=== PATIENT | male | born 2000 | race Caucasian/White ===

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

== ENCOUNTER 2020-09-24 11:40 | Emergency (ER) | payer SELFPAY ==
[2020-09-24] MEDS ORDERED: Sodium Chloride 0.9% 1,000 ML IV STA (12:04)
--- NOTE | 2020-09-24 13:05 | CR ---
Chest: 2 views of the chest were obtained. Comparison: No prior chest imaging is available. Heart size and mediastinum are within normal limits. Lungs are clear with no acute parenchymal change. Bony structures are within normal limits for the patient's age. Impression: 1. Nothing acute is seen on 2 view chest x-ray. Diagnostic code #1
--- NOTE | 2020-09-24 13:15 | EDM.PDOC ---
ED HPI GENERAL MEDICAL PROBLEM - General Chief Complaint: Syncope Stated Complaint: SYNCOPE/ HEAD INJURY Time Seen by Provider: 09/24/20 11:54 Source of Information: Reports: Patient, RN Notes Reviewed History Limitations: Reports: No Limitations - History of Present Illness INITIAL COMMENTS - FREE TEXT/NARRATIVE: Patient is a 19-year-old male presenting to the emergency department after having a syncopal episode at work. 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 He then had a syncopal episode causing him to fall and hit his head against a wall. Fall was witnessed. He regained consciousness very quickly thereafter. He complains of a severe headache at this time but denies any vision changes or vomiting since the incident. He does report that he has not felt real well for the last few days and did vomit this morning before the incident occurred. Denies any cardiac conditions. Aside from the headache, he has no other complaints at this time. Headache Pain Score (Numeric/FACES): 7 - Related Data Allergies Allergy/AdvReac Type Severity Reaction Status Date / Time No Known Allergies Allergy Verified 02/15/19 12:47 Home Meds: Home Meds . [No Known Home Meds] 08/07/17 [History] Past Medical History - Past Health History Medical/Surgical History: Denies Medical/Surgical History Respiratory History: Reports: Other (See Below) Endocrine/Metabolic History: Reports: Obesity/BMI 30+ Social & Family History - Family History Family Medical History: No Pertinent Family History - Tobacco Use Tobacco Use Status *Q: Current Every Day Tobacco User Years of Tobacco use: 4 Packs/Tins Daily: 0.1 - Caffeine Use Caffeine Use: Reports: Soda, Tea - Recreational Drug Use Recreational Drug Type: Reports: Marijuana/Hashish Recreational Drug Use Frequency: Rarely - Living Situation & Occupation Living situation: Reports: Single, Alone Occupation: Employed ([employer]) ED ROS GENERAL - Review of Systems Review Of Systems: See Below Constitutional: Reports: No Symptoms. Denies: Fever, Chills, Weakness HEENT: Reports: No Symptoms. Denies: Vision Change Respiratory: Reports: No Symptoms Cardiovascular: Reports: Syncope. Denies: Chest Pain Endocrine: Reports: No Symptoms GI/Abdominal: Reports: No Symptoms. Denies: Abdominal Pain, Diarrhea, Nausea, Vomiting : Reports: No Symptoms Musculoskeletal: Reports: No Symptoms. Denies: Neck Pain Skin: Reports: No Symptoms Neurological: Reports: Headache, Syncope. Denies: Confusion, Dizziness, Trouble Speaking, Difficulty Walking, Weakness, Change in Speech, Gait Disturbance Psychiatric: Reports: No Symptoms Hematologic/Lymphatic: Reports: No Symptoms Immunologic: Reports: No Symptoms - Physical Exam Exam: See Below Exam Limited By: No Limitations General Appearance: Alert, WD/WN, No Apparent Distress Eye Exam: Bilateral Eye: PERRL Head Exam: Atraumatic, Normocephalic Neck: Normal Inspection, Supple, Non-Tender, Full Range of Motion Respiratory/Chest: No Respiratory Distress, Lungs Clear, Normal Breath Sounds, No Accessory Muscle Use, Chest Non-Tender Cardiovascular: Normal Peripheral Pulses, Regular Rate, Rhythm, No Edema, No Gallop, No JVD, No Murmur, No Rub GI/Abdominal: Normal Bowel Sounds, Soft, Non-Tender, No Organomegaly, No Distention, No Abnormal Bruit, No Mass Neuro Exam (Abbreviated): Alert, Oriented, CN II-XII Intact, Normal Cognition, Normal Gait, Normal Reflexes, No Motor/Sensory Deficits Psychiatric: Normal Affect, Normal Mood Skin Exam: Warm, Dry, Intact, Normal Color, No Rash Course - Vital Signs Last Recorded V/S: Last Vital Signs Temp 97.8 F 09/24/20 11:55 Pulse 67 09/24/20 11:55 Resp 20 09/24/20 11:55 BP 134/80 09/24/20 11:55 Pulse Ox 96 09/24/20 11:55 Orthostatic Blood Pressure [ 113/61 Standing] Orthostatic Blood Pressure [ 118/60 Sitting] Orthostatic Blood Pressure [ 124/54 Supine] - Orders/Labs/Meds Orders: Active Orders 24 hr Category Date Time Status EKG Documentation Completion [RC] STAT Care 09/24/20 12:03 Active Orthostatic Vital Signs [RC] ASDIRECTED Care 09/24/20 12:04 Active Labs: Laboratory Tests 09/24/20 09/24/20 09/24/20 Range/Units 12:15 12:15 12:15 WBC 5.69 (4.23-9.07) K/mm3 RBC 5.46 (4.63-6.08) M/mm3 Hgb 14.9 (13.7-17.5) gm/dl Hct 44.9 (40.1-51.0) % MCV 82.2 (79.0-92.2) fl MCH 27.3 (25.7-32.2) pg MCHC 33.2 (32.2-35.5) g/dl RDW Std Deviation 39.3 (35.1-43.9) fL Plt Count 312 D (163-337) K/mm3 MPV 9.2 L (9.4-12.3) fl Neut % (Auto) 64.9 (34.0-67.9) % Lymph % (Auto) 23.7 (21.8-53.1) % [place] % (Auto) 10.0 (5.3-12.2) % Eos % (Auto) 0.7 L (0.8-7.0) Baso % (Auto) 0.7 (0.1-1.2) % Neut # (Auto) 3.69 (1.78-5.38) K/mm3 Lymph # (Auto) 1.35 (1.32-3.57) K/mm3 [place] # (Auto) 0.57 (0.30-0.82) K/mm3 Eos # (Auto) 0.04 (0.04-0.54) K/mm3 Baso # (Auto) 0.04 (0.01-0.08) K/mm3 Sodium 144 (136-145) mEq/L Potassium 4.0 (3.5-5.1) mEq/L Chloride 104 (98-107) mEq/L Carbon Dioxide 28 (21-32) mEq/L Anion Gap 16.0 H (5-15) BUN 12 (7-18) mg/dL Creatinine 0.9 (0.7-1.3) mg/dL Est Cr Clr Drug Dosing 127.72 mL/min Estimated GFR (MDRD) > 60 (>60) mL/min BUN/Creatinine Ratio 13.3 L (14-18) Glucose 88 (70-99) mg/dL Calcium 9.1 (8.5-10.1) mg/dL Magnesium 1.7 L (1.8-2.4) mg/dL Total Bilirubin 0.7 (0.2-1.0) mg/dL AST 20 (15-37) U/L ALT 27 (16-63) U/L Alkaline Phosphatase 66 (46-116) U/L Troponin I < 0.017 (0.00-0.056) ng/mL Total Protein 8.0 (6.4-8.2) g/dl Albumin 4.2 (3.4-5.0) g/dl Globulin 3.8 gm/dL Albumin/Globulin Ratio 1.1 (1-2) Meds: Medications Discontinued Medications Generic Name Dose Route Start Last Admin Trade Name Kelby PRN Reason Stop Dose Admin Acetaminophen 975 mg 09/24/20 13:16 09/24/20 13:48 Acetaminophen 325 Mg Tab PO 09/24/20 13:17 975 mg NOW ONE Administration Sodium Chloride 1,000 mls @ 999 mls/hr 09/24/20 12:04 09/24/20 12:30 Normal Saline IV 09/24/20 13:04 999 mls/hr NOW STA Administration - Re-Assessments/Exams Free Text/Narrative Re-Assessment/Exam: Patient is a 19-year-old male presenting to the emergency department for evaluation after experiencing a syncopal episode at work. 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 Reports hitting his head on the wall when he fell. Fall was witnessed and he regained consciousness very quickly. At this point, he is complaining of a fairly significant headache. He reports that he has felt a little nauseous for the last few days and did vomit this morning before the incident. He has not had any vomiting since. Exam is grossly unremarkable. I have ordered blood work, EKG, chest x-ray, head CT, and a 1 L bolus of normal saline. We will also give Tylenol 975 mg p.o. 09/24/20 13:56 Hematology is grossly unremarkable. EKG shows a sinus arrhythmia with no acute abnormalities. This is a normal age variant. Head CT is normal. Patient states he is feeling much better after the IV fluids and Tylenol. We will discharge him home with instructions to rest and increase fluid intake today. He may return back to work tomorrow if he is feeling well. Discussed return precautions. Discharge instructions as documented. Departure - Departure Time of Disposition: 13:57 Disposition: Home, Self-Care 01 Condition: Good Clinical Impression: Syncope Qualifiers: Syncope type: unspecified Qualified Code(s): R55 - Syncope and collapse - Discharge Information *PRESCRIPTION DRUG MONITORING PROGRAM REVIEWED*: No *COPY OF PRESCRIPTION DRUG MONITORING REPORT IN PATIENT VINICIUS: No Instructions: Syncope, [id number] Referrals: PCP,None [Primary Care Provider] - Forms: ED Department Discharge, ED Return to Work/School Form Additional Instructions: You were seen in the emergency department today for evaluation after having a syncopal episode at work. Work-up included blood work, EKG, chest x-ray, and head CT. Results of your work-up was found to be normal. While in the ER, you received a liter of IV fluids as well as Tylenol for your headache. Report this did make you feel much better. Recommend that you go home and rest today. Ensure that you are taking an adequate amount of fluid. If you are feeling well, you may return to work tomorrow. If you should experience any recurrence of symptoms or develop any new new symptoms of concern, please do not hesitate to return to the ER for reevaluation. Sepsis Event Note (ED) - Evaluation Sepsis Screening Result: No Definite Risk - Focused Exam Vital Signs: Vital Signs Temp Pulse Resp BP Pulse Ox 09/24/20 11:55 97.8 F 67 20 134/80 96 - My Orders Last 24 Hours: My Active Orders 09/24/20 12:03 EKG Documentation Completion [RC] STAT 09/24/20 12:04 Orthostatic Vital Signs [RC] ASDIRECTED - Assessment/Plan Last 24 Hours: My Active Orders 09/24/20 12:03 EKG Documentation Completion [RC] STAT 09/24/20 12:04 Orthostatic Vital Signs [RC] ASDIRECTED
[2020-09-24] MEDS ORDERED: Acetaminophen 325 MG Tab PO ONE (13:16)
--- NOTE | 2020-09-24 13:36 | CT ---
Head CT Technique: Multiple axial sections through the brain were obtained. Intravenous contrast was not utilized. Reconstructed coronal and sagittal images were obtained. Comparison: No prior intracranial imaging is available. Findings: Ventricles along with basal cisterns and sulci over the convexities are within normal limits for the patient's age. No abnormal parenchymal densities are seen. No evidence of intracranial hemorrhage. No midline shift or mass-effect is seen. Bone window settings were reviewed. Visualized paranasal sinuses and mastoid sinuses show nothing acute. No acute calvarial abnormality is appreciated. Impression: 1. Nothing acute is appreciated on noncontrast head CT exam. Diagnostic code #1
== END 2020-09-24 14:10 | disposition home or self-care (01) ==
LOC: JD.ED 11:40
DX: R55 Syncope and collapse (principal); E66.9 Obesity, unspecified; Z72.0 Tobacco use
CPT/HCPCS: 36415; 70450; 71046; 80053; 83735; 84484; 85025; 93005; 99284; A9270; J7030

== ENCOUNTER 2021-02-25 13:06 | Emergency (ER) | payer SELFPAY ==
[2021-02-25] MEDS ORDERED: Ketorolac 60 MG/2 ML SDV IM ONE (13:39)
--- NOTE | 2021-02-25 13:43 | EDM.PDOC ---
ED HPI GENERAL MEDICAL PROBLEM - General Chief Complaint: ENT Problem Stated Complaint: WEAK\BODY ACHE Time Seen by Provider: 02/25/21 13:21 Source of Information: Reports: Patient History Limitations: Reports: No Limitations - History of Present Illness INITIAL COMMENTS - FREE TEXT/NARRATIVE: 20-year-old male presents the emergency department today with complaints of left ear pain, fever, chills, body aches, cough and shortness of breath. Onset of symptoms was approximately 3 days ago. He states he still has gone to work the past couple of days however today he states his body feels so weak and achy that he can hardly get out of bed. Denies any nausea, vomiting or diarrhea. States his appetite has been normal. States he is otherwise healthy. Does admit to smoking cigarettes daily. Generalized Pain Score (Numeric/FACES): 4 - Related Data Allergies Allergy/AdvReac Type Severity Reaction Status Date / Time No Known Allergies Allergy Verified 02/25/21 13:28 Home Meds: Home Meds Amoxicillin 875 mg PO BID #10 tablet 02/25/21 [Rx] Past Medical History - Past Health History Medical/Surgical History: Denies Medical/Surgical History Respiratory History: Reports: Other (See Below) Endocrine/Metabolic History: Reports: Obesity/BMI 30+ Social & Family History - Family History Family Medical History: No Pertinent Family History - Tobacco Use Tobacco Use Status *Q: Current Every Day Tobacco User Years of Tobacco use: 7 Packs/Tins Daily: 0.2 - Caffeine Use Caffeine Use: Reports: None - Recreational Drug Use Recreational Drug Use: Yes Recreational Drug Type: Reports: Marijuana/Hashish Other Recreational Drug Type: quit two months ago - Living Situation & Occupation Living situation: Reports: Single, Alone Occupation: Employed ([employer]) ED ROS ENT - Review of Systems Review Of Systems: Comprehensive ROS is negative, except as noted in HPI. ED EXAM, ENT - Physical Exam Exam: See Below Exam Limited By: No Limitations General Appearance: Alert, WD/WN, Mild Distress Ears: Normal External Exam, Hearing Grossly Normal (Blood noted to bilateral canals after having ears cleaned), TM Bulging (Left ear), TM Dullness, TM Erythema (Left ear), TM Obscured by Cerumen (Bilateral ears prior to ear wash). No: Normal Canal Nose: Normal Inspection Mouth/Throat: Normal Inspection, Normal Gums, Normal Lips, Normal Oropharynx Head: Atraumatic, Normocephalic Neck: Normal Inspection, Supple Respiratory/Chest: No Respiratory Distress, Lungs Clear, Normal Breath Sounds, No Accessory Muscle Use, Chest Non-Tender Cardiovascular: Normal Peripheral Pulses, Regular Rate, Rhythm, No Edema, No Murmur GI/Abdominal: Normal Bowel Sounds, Soft, Non-Tender, No Distention (Male) Exam: Deferred Rectal (Males) Exam: Deferred Back: Normal Inspection, Full Range of Motion Extremities: Normal Inspection, Normal Range of Motion, Non-Tender, No Pedal Edema, Normal Capillary Refill Neurological: Alert, Oriented, Normal Cognition Psychiatric: Normal Affect, Normal Mood Skin: Warm, Dry, Intact, Normal Color, No Rash Lymphatic: No Adenopathy Course - Vital Signs Text/Narrative:: Upon physical exam, I am unable to visualize patient's tympanic membranes due to his ears being occluded with wax. States that left ear is extremely sore and he has increased pain with yawning or coughing. Remainder of physical exam is unremarkable. Patient is hemodynamically stable. Will medicate the patient with Toradol 60 mg IM and then have nursing staff clean the patient's ears. We will also obtain a Covid swab. Last Recorded V/S: Last Vital Signs Temp 97.6 F 02/25/21 13:24 Pulse 104 H 02/25/21 13:24 Resp 18 02/25/21 13:24 BP 124/85 02/25/21 13:24 Pulse Ox 99 02/25/21 13:24 - Orders/Labs/Meds Orders: Active Orders 24 hr Category Date Time Status Ear Irrigation [RC] ASDIRECTED Care 02/25/21 13:40 Active Labs: Laboratory Tests 02/25/21 Range/Units 13:32 Influenza Type A RNA Negative (NEGATIVE) Influenza Type B RNA Negative (NEGATIVE) SARS-CoV-2 RNA ([facility]OS) Negative (NEGATIVE) Meds: Medications Discontinued Medications Generic Name Dose Route Start Last Admin Trade Name Freq PRN Reason Stop Dose Admin Ketorolac Tromethamine 60 mg 02/25/21 13:39 02/25/21 13:55 Ketorolac 60 Mg/2 Ml Sdv IM 02/25/21 13:40 60 mg ONETIME ONE Administration - Re-Assessments/Exams Free Text/Narrative Re-Assessment/Exam: 02/25/21 14:40 Patient's Covid influenza a and B swabs are all negative. States he does have pain relief from the Toradol. Will evaluate his ears once nursing staff has cleaned them. 02/25/21 15:20 After nursing staff had clean the patient's ears there was some blood noted to the patient's bilateral canals. Tympanic membrane in the right ear is unremarkable. Tympanic membrane to left ear is dull, erythematous and edematous. Patient will be discharged home with a prescription for amoxicillin. Departure - Departure Time of Disposition: 15:22 Disposition: Home, Self-Care 01 Condition: Good Clinical Impression: Otitis media Qualifiers: Otitis media type: unspecified Chronicity: acute Qualified Code(s): H66.90 - Otitis media, unspecified, unspecified ear - Discharge Information Prescriptions: Amoxicillin 875 mg PO BID #10 tablet Instructions: Otitis Media, Adult, [id number] Referrals: PCP,None [Primary Care Provider] - Forms: ED Department Discharge, ED Return to Work/School Form Additional Instructions: You were seen in the emergency department today with complaints of left ear pain and body aches. Covid and influenza testing was completed and this was negative. Your ears were compacted with wax and nursing staff did clean your ears on the emergency department. There is some blood noted to both your ear canals due to irritation however this should resolve. You do have an ear infection in the left ear. I have sent a prescription for amoxicillin 875 mg to be taken twice daily for 5 days to clear up the ear infection. Be sure to take this medication as prescribed to make sure the infection resolves. Also recommend you take pseudoephedrine per label instructions for increased fluid and pressure noted to the ears. May take Tylenol 650 mg every 4 hours as needed for discomfort or ibuprofen 600 mg every 6-8 hours as needed for the discomfort. Sepsis Event Note (ED) - Focused Exam Vital Signs: Vital Signs Temp Pulse Resp BP Pulse Ox 02/25/21 13:24 97.6 F 104 H 18 124/85 99 - My Orders Last 24 Hours: My Active Orders 02/25/21 13:40 Ear Irrigation [RC] ASDIRECTED - Assessment/Plan Last 24 Hours: My Active Orders 02/25/21 13:40 Ear Irrigation [RC] ASDIRECTED
[2021-02-25 14:33] LABS: CORONAVIRUS COVID-19 NAA NEGATIVE (NEGATIVE)
== END 2021-02-25 15:32 | disposition home or self-care (01) ==
LOC: JD.ED 13:06
DX: H66.92 Otitis media, unspecified, left ear (principal); H61.23 Impacted cerumen, bilateral; F17.210 Nicotine dependence, cigarettes, uncomplicated; E66.9 Obesity, unspecified; Z68.33 Body mass index [BMI] 33.0-33.9, adult; Z20.822 Contact with and (suspected) exposure to COVID-19
CPT/HCPCS: 0240U; 96372; 99283; J1885

== ENCOUNTER 2021-04-10 08:38 | Emergency (ER) | payer SELFPAY ==
[2021-04-10] MEDS ORDERED: Ketorolac 15 MG/ML SDV IM ONE (09:29)
[2021-04-10 09:43] LABS: CORONAVIRUS COVID-19 NAA NEGATIVE (NEGATIVE)
== END 2021-04-10 11:55 | disposition home or self-care (01) ==
LOC: JD.ED 08:38
DX: J02.8 Acute pharyngitis due to other specified organisms (principal); E66.9 Obesity, unspecified; Z68.34 Body mass index [BMI] 34.0-34.9, adult; Z20.822 Contact with and (suspected) exposure to COVID-19
CPT/HCPCS: 0241U; 36415; 86308; 87651; 96372; 99283; J1885

== ENCOUNTER 2021-04-14 08:35 | Emergency (ER) | payer SELFPAY ==
[2021-04-14] MEDS ORDERED: Ibuprofen 600 MG Tab PO ONE (09:03)
[2021-04-14] MEDS ORDERED: Dextrose 5%-0.9% NaCl 1,000 ML IV SCH (09:15)
[2021-04-14] MEDS ORDERED: Metoclopramide 10 MG/2 ML SDV IVPUSH ONE (09:31)
[2021-04-14] MEDS ORDERED: HYDROmorphone 0.5 MG/0.5 ML Syringe IVPUSH ONE (09:32)
[2021-04-14 10:14] LABS: CORONAVIRUS COVID-19 NAA NEGATIVE (NEGATIVE)
== END 2021-04-14 11:08 | disposition home or self-care (01) ==
LOC: JD.ED 08:35
DX: J03.90 Acute tonsillitis, unspecified (principal); J40 Bronchitis, not specified as acute or chronic; E66.9 Obesity, unspecified; Z68.34 Body mass index [BMI] 34.0-34.9, adult; Z20.822 Contact with and (suspected) exposure to COVID-19
CPT/HCPCS: 0241U; 36415; 71045; 80053; 82009; 85025; 86140; 96374; 96375; 99285; A9270; J1170; J2765; J7042; 99283

== ENCOUNTER 2021-09-08 12:26 | Emergency (ER) | payer SELFPAY ==
[2021-09-08] MEDS ORDERED: Ketorolac 60 MG/2 ML SDV IM ONE (13:11)
== END 2021-09-08 14:56 | disposition home or self-care (01) ==
LOC: JD.ED 12:26
DX: S79.911A Unspecified injury of right hip, initial encounter (principal); M54.50 Low back pain, unspecified; F17.210 Nicotine dependence, cigarettes, uncomplicated; E66.9 Obesity, unspecified; Z68.33 Body mass index [BMI] 33.0-33.9, adult; X50.0XXA Overexertion from strenuous movement or load, initial encounter
CPT/HCPCS: 72100; 73502; 96372; 99283; J1885

== ENCOUNTER 2021-10-02 20:52 | Emergency (ER) | payer SELFPAY ==
[2021-10-02 22:24] LABS: CORONAVIRUS COVID-19 NAA POSITIVE (NEGATIVE)
[2021-10-02 23:06] LABS: ESTIMATED GFR 130 mL/min (>60)
== END 2021-10-02 23:00 | disposition home or self-care (01) ==
LOC: JD.ED 20:52
DX: U07.1 COVID-19 (principal); F17.210 Nicotine dependence, cigarettes, uncomplicated; E66.9 Obesity, unspecified; Z68.30 Body mass index [BMI] 30.0-30.9, adult; Z86.16 Personal history of COVID-19
CPT/HCPCS: 0240U; 36415; 80053; 83735; 85025; 93005; 99285; 93010; 99283

== ENCOUNTER 2021-12-09 07:24 | Emergency (ER) | payer SELFPAY ==
[2021-12-09] MEDS ORDERED: Pseudoephedrine 30 MG Tab PO ONE (07:48)
[2021-12-09] MEDS ORDERED: Ibuprofen 600 MG Tab PO ONE (07:48)
== END 2021-12-09 09:49 | disposition home or self-care (01) ==
LOC: JD.ED 07:24
DX: U07.1 COVID-19 (principal); E66.9 Obesity, unspecified; Z68.32 Body mass index [BMI] 32.0-32.9, adult
CPT/HCPCS: 71045; 87635; 99283; A9270; 99284; U0002

== ENCOUNTER 2024-12-06 03:47 | Emergency (ER) | payer SELFPAY | END 2024-12-06 05:35 | disposition home or self-care (01) | LOC: JD.ED 03:47 | DX: M23.92 Unspecified internal derangement of left knee (principal); F17.210 Nicotine dependence, cigarettes, uncomplicated; Z79.899 Other long term (current) drug therapy; Z86.16 Personal history of COVID-19 | CPT/HCPCS: 73564; 99283; A9270 ==